=== PATIENT | male | born 1975 | race Caucasian/White ===

== ENCOUNTER 2017-08-06 05:26 | Observation (INO) | payer OTHER ==
[2017-08-06] MEDS: CLINDAMYCIN 900 MG/D5W (PMX) 50 ML IVPB (06:00)
[2017-08-06] MEDS ORDERED: MIDAZOLAM 1 MG/ML 2 ML INJ (06:21)
[2017-08-06] MEDS ORDERED: NEOSTIGMINE 3 MG/3 ML SYRINGE (06:21)
[2017-08-06] MEDS ORDERED: PROPOFOL 20 ML (06:21)
[2017-08-06] MEDS ORDERED: FENTAnyl 50 MCG/ML VIAL ×2 (06:21→11:16)
[2017-08-06] MEDS ORDERED: GLYCOPYRROLATE 0.4 MG INJ (06:21)
[2017-08-06] MEDS ORDERED: ROCURONIUM 50 MG INJ (06:21)
[2017-08-06] MEDS ORDERED: LIDOCAINE 2% (SDV) 5 ML INJ (06:21)
[2017-08-06] MEDS ORDERED: ONDANSETRON 4 MG INJ (06:27)
[2017-08-06] MEDS ORDERED: DEXAMETHASONE 4 MG/ML 1 ML INJ (06:27)
[2017-08-06] MEDS ORDERED: EPHEDrine SULFATE 50 MG/5 ML SYG IV (06:30)
[2017-08-06] MEDS ORDERED: MEPERIDINE 25 MG INJ IV (06:30)
[2017-08-06] MEDS ORDERED: FENTAnyl 50 MCG/ML VIAL IV ×2 (06:30)
[2017-08-06] MEDS ORDERED: hydrALAzine 20 MG INJ IV (06:30)
[2017-08-06] MEDS ORDERED: LABETALOL HCL 20MG INJ IV (06:30)
[2017-08-06] MEDS ORDERED: ONDANSETRON 4 MG INJ IV (06:30)
[2017-08-06] MEDS ORDERED: OXYCODONE/ACETAMINOPHEN (5/325) TAB PO ×2 (06:30)
[2017-08-06] MEDS ORDERED: morphine (1 MG/ML) 10ML SYRINGE IV ×3 (06:30)
[2017-08-06] MEDS ORDERED: DIPHENHYDRAMINE 50 MG INJ IV (06:30)
[2017-08-06] MEDS ORDERED: MIDAZOLAM 1 MG/ML 2 ML INJ IV (06:30)
[2017-08-06] MEDS ORDERED: HYDROmorphONE (0.2 MG/ML) 10ML SYG IV ×3 (06:30)
[2017-08-06] MEDS ORDERED: ATROPINE 1 MG/10 ML SYRINGE IV (06:30)
[2017-08-06] MEDS: BUPIVACAINE 0.25%/EPI (SDV) 30 ML INJ (07:13)
[2017-08-06] MEDS ORDERED: SUCCINYLCHOLINE CHLORIDE 100 MG/5 ML SYG IV (08:33)
[2017-08-06] MEDS ORDERED: HYDROmorphONE 0.5 MG/0.5 ML SYG IV (12:30)
[2017-08-06] MEDS ORDERED: HYDROmorphONE 1 MG/ML SYG IV (12:30)
[2017-08-06] MEDS ORDERED: BISACODYL 10 MG SUPP PR (12:30)
[2017-08-06] MEDS ORDERED: NA PHOSPHATE/BIPHOS 133 ML ENEMA PR (12:30)
[2017-08-06] MEDS ORDERED: HYDROCODONE/APAP (5/325) TAB PO (12:30)
[2017-08-06] MEDS ORDERED: DOCUSATE SODIUM 100 MG CAP PO (12:30)
[2017-08-06] MEDS ORDERED: HYDROmorphONE 0.2 MG/ML PCA (12:35)
[2017-08-06] MEDS: HYDROmorphONE 0.2 MG/ML PCA IV (12:44)
[2017-08-06] MEDS ORDERED: KETOROLAC 30 MG INJ (12:49)
[2017-08-06] MEDS: KETOROLAC 30 MG INJ IV ×2 (13:34→21:41)
[2017-08-06] MEDS: D5W-0.45 NACL + KCL 20 MEQ 1,000 ML IV (14:30)
[2017-08-07] MEDS: KETOROLAC 30 MG INJ IV ×2 (04:03→08:47)
[2017-08-07 05:19] LABS: ADD MAN DIFF? NO
[2017-08-07 05:24] LABS: HEMATOCRIT 33.1 % (42.0-52.0); HEMOGLOBIN 11.1 g/dl (14.0-18.0); LYMPHOCYTES # 1.8 10^3/ul (0.8-2.9); LYMPHOCYTES % 16.1 % (15.0-51.0); MEAN CORPUSCULAR HEMOGLOBIN 30.2 pg (29.0-33.0); MEAN CORPUSCULAR HGB CONC 33.5 g/dl (32.0-37.0); MEAN CORPUSCULAR VOLUME 89.9 fl (82.0-101.0); MEAN PLATELET VOLUME 9.8 fl (7.4-10.4); MONOCYTE # 0.9 10^3/ul (0.3-0.9); MONOCYTES % 8.3 % (0.0-11.0); NEUTROPHIL # 8.2 10^3/ul (1.6-7.5); NEUTROPHILS % 75.1 % (39.0-77.0); PLATELET COUNT 186 10^3/UL (140-415); RED BLOOD COUNT 3.68 10^6/ul (4.70-6.10); RED CELL DISTRIBUTION WIDTH 12.6 % (11.5-14.5)
[2017-08-07 05:47] LABS: INR 0.98; PARTIAL THROMBOPLASTIN TIME 31.7 Sec (25.0-35.0); PROTIME 13.1 Sec (11.9-14.9)
[2017-08-07 06:08] LABS: ALANINE AMINOTRANSFERASE 28 IU/L (13-69); ALBUMIN 3.5 g/dl (3.3-4.9); ALBUMIN/GLOBULIN RATIO 1.09; ALKALINE PHOSPHATASE 42 IU/L (42-121); ANION GAP 15 (8-16); ASPARTATE AMINO TRANSFERASE 20 IU/L (15-46); BLOOD UREA NITROGEN 21 mg/dl (7-20); CALCIUM 8.5 mg/dl (8.4-10.2); CARBON DIOXIDE 27 mmol/L (21-31); CHLORIDE 103 mmol/L (97-110); CREATININE 1.22 mg/dl (0.61-1.24); GLUCOSE 118 mg/dl (70-220); MAGNESIUM 1.7 mg/dl (1.7-2.5); PHOSPHORUS 4.4 mg/dl (2.5-4.9); POTASSIUM 4.1 mmol/L (3.5-5.1); SODIUM 141 mmol/L (135-144); TOTAL PROTEIN 6.7 g/dl (6.1-8.1)
[2017-08-07] MEDS: FAMOTIDINE 20 MG INJ IV (08:47)
[2017-08-07] MEDS: ENOXAPARIN 40 MG/0.4 ML SYG SC (08:56)
[2017-08-07] MEDS: INFLUENZA VIRUS VACCINE 0.5 ML SYG IM* (12:00)
[2017-08-07] MEDS: HYDROCODONE/APAP (5/325) TAB PO (15:58)
== END 2017-08-07 16:00 | disposition home or self-care (01) ==
LOC: REC 05:26 → MS1 14:22
DX: K43.2 Incisional hernia without obstruction or gangrene (principal); L90.5 Scar conditions and fibrosis of skin; K59.00 Constipation, unspecified; E66.9 Obesity, unspecified; Z68.35 Body mass index [BMI] 35.0-35.9, adult; I10 Essential (primary) hypertension; N28.9 Disorder of kidney and ureter, unspecified; Z88.0 Allergy status to penicillin; Z23 Encounter for immunization
CPT/HCPCS: 11406; 80053; 83735; 84100; 85025; 85610; 85730; 90686; 99217

== ENCOUNTER 2017-08-26 13:45 | Outpatient (CLI) | payer OTHER | END 2017-08-26 15:54 | disposition home or self-care (01) | LOC: HPC 13:45 | DX: Z09 Encounter for follow-up examination after completed treatment for conditions other than malignant neoplasm (principal); K43.2 Incisional hernia without obstruction or gangrene | CPT/HCPCS: G0463 ==